=== PATIENT | male | born 1980 | race African-American/Black ===

== ENCOUNTER 2023-02-28 06:36 | Emergency (ER) | payer MEDICAID ==
[~2023-02-28] VITALS: Ht 182.9 cm; Wt 80.0 kg
[~2023-02-28 06:36] MED LIST: ALBUTEROL
[2023-02-28 06:38] VITALS: O2SAT 100
[2023-02-28] MEDS ORDERED: MAGNESIUM/ALUMINUM HYDROXIDE/SIMETHICONE 30ML UDC PO STA (06:51)
[2023-02-28] MEDS ORDERED: FAMOTIDINE 20MG TABLET PO ONE (07:00)
[2023-02-28] MEDS ORDERED: FUROSEMIDE 40MG TABLET PO ONE (07:00)
[2023-02-28 08:54] LABS: HEMATOCRIT. 41.4 % (42.0-52.0); HEMOGLOBIN. 13.7 g/dL (14.0-18.0); MEAN CORPUSCULAR HEMOGLOBIN 29.5 pg (28.0-32.0); MEAN CORPUSCULAR VOLUME 88.9 fL (80.0-94.0); MEAN PLATELET VOLUME 8.2 fl (7.4-10.4); PLATELET 273 x1000/uL (130-400); RED BLOOD CELL COUNT 4.66 mill/uL (4.7-6.1); RED CELL DISTRIBUTION WIDTH 14.6 % (11.6-14.6)
[2023-02-28 09:00] LABS: CHLORIDE 102 mEq/L (98-107)
[2023-02-28 09:13] LABS: INR 1.1; PROTHROMBIN TIME 11.9 sec (9.6-11.0)
[2023-02-28 09:14] LABS: PLATELET ESTIMATE NORMAL
[2023-02-28] MEDS ORDERED: SENNOSIDES 8.6MG TABLET PO PRN (09:45)
[2023-02-28] MEDS ORDERED: METOCLOPRAMIDE HCL 10MG TABLET PO NR (10:00)
[2023-02-28] MEDS ORDERED: FUROSEMIDE 40MG/4ML VIAL IVP ONE (10:15)
[2023-02-28] MEDS ORDERED: FURO-152 MT (11:53)
[2023-02-28] MEDS ORDERED: METO5TAB86 MT (11:53)
[2023-02-28 12:22] VITALS: BP 120/84; PULSE 99; RESP 15; TEMP 98.5
== END 2023-02-28 12:31 | disposition home or self-care (01) ==
LOC: ER 06:44
DX: K56.7 Ileus, unspecified (principal); I50.9 Heart failure, unspecified
CPT/HCPCS: 80053; 83880; 83690; 83735; 85025; 85610; 36415; 74176; 96374; 99285; J8597; J1940; Z7610 ×2

== ENCOUNTER 2023-04-20 02:16 | Emergency (ER) | payer MEDICAID ==
[~2023-04-20] VITALS: Ht 182.9 cm; Wt 82.0 kg
[~2023-04-20 02:16] MED LIST changes: +ASPI-1497 MT; +CARV6.2548 MT; +FURO-151 MT; +FURO-152 MT; +LOSA25TA3 PO; +METO5TAB86 MT; +POTA-205 MT; +SPIR25TA PO
[2023-04-20 02:19] VITALS: BP 149/79; TEMP 98.4
[2023-04-20] MEDS ORDERED: IPRATROPIUM BROMIDE (0.02%) 0.5MG/2.5ML NEB HHN STA (02:22)
[2023-04-20] MEDS ORDERED: ALBUTEROL (0.083%) 2.5MG/3ML NEB HHN STA (02:22)
[2023-04-20 03:16] VITALS: PULSE 99; RESP 20; O2SAT 96
[2023-04-20 03:32] LABS: BASOPHILS % 1.4 % (0.0-2.0); EOSINOPHILS % 12.8 % (0.0-5.0); HEMATOCRIT. 42.5 % (42.0-52.0); HEMOGLOBIN. 14.2 g/dL (14.0-18.0); LYMPHOCYTES % 24.5 % (20.0-50.0); MEAN CORPUSCULAR HEMOGLOBIN 29.6 pg (28.0-32.0); MEAN CORPUSCULAR HGB CONC 33.5 g/dL (31.0-37.0); MEAN CORPUSCULAR VOLUME 88.3 fL (80.0-94.0); MEAN PLATELET VOLUME 7.9 fl (7.4-10.4); MONOCYTES % 7.1 % (2.0-8.0); NEUTROPHILS % 54.2 % (40.0-76.0); PLATELET 251 x1000/uL (130-400); RED BLOOD CELL COUNT 4.81 mill/uL (4.7-6.1); RED CELL DISTRIBUTION WIDTH 14.7 % (11.6-14.6); WHITE BLOOD COUNT 6.2 x1000/uL (4.5-11.0)
[2023-04-20 03:39] LABS: CHLORIDE 100 mEq/L (98-107); INDEX HEMOLYSI 1 (1-3); INDEX ICTERIC 1 (1-4); INDEX LIPEMIC 1 (1-3); POTASSIUM 4.6 mEq/L (3.5-5.1); SODIUM 136 mEq/L (136-145)
[2023-04-20 03:51] LABS: ALANINE AMINOTRANSFERASE 45 IU/L (13-61); ALBUMIN 3.8 g/dL (3.4-5.0); ASPARTATE AMINOTRANSFERASE 34 IU/L (15-37); BILIRUBIN TOTAL 0.7 mg/dL (0.1-1.0); CALCIUM 8.9 mg/dL (8.5-10.1); CARBON DIOXIDE 29 mEq/L (21-32); ETHANOL BLOOD < 10 mg/dL (-10); GLUCOSE 108 mg/dL (70-105); NT PRO B-TYPE NATRIURETIC PEP 8330 pg/mL (5-125); PROTEIN TOTAL 7.2 g/dL (6.0-8.3); TROPONIN I HIGH SENSITIVITY 45 ng/L (<78); UREA NITROGEN BLOOD 33 mg/dL (7-21)
[2023-04-20] MEDS ORDERED: ALBU6.7H15 INH (04:06)
[2023-04-20] MEDS ORDERED: FUROSEMIDE 40MG TABLET PO NR (04:15)
== END 2023-04-20 06:28 | disposition home or self-care (01) ==
LOC: ER 02:22
DX: J44.1 Chronic obstructive pulmonary disease with (acute) exacerbation (principal); F17.200 Nicotine dependence, unspecified, uncomplicated; I50.9 Heart failure, unspecified; Z79.899 Other long term (current) drug therapy
CPT/HCPCS: 80053; 80320; 83880; 83690; 85025; 84484; 36415; 71045; 94640; 93005; 99285; Z7610 ×3; G0480

== ENCOUNTER 2023-12-11 07:08 | Emergency (ER) | payer MEDICAID ==
[~2023-12-11] VITALS: Ht 180.3 cm; Wt 77.1 kg
[~2023-12-11 07:08] MED LIST changes: +ALBU6.7H15 INH; +LOSA-412 PO; -LOSA25TA3 PO
[2023-12-11 07:31] VITALS: O2SAT 100
[2023-12-11 08:10] LABS: BASOPHILS % 2.3 % (0.0-2.0); EOSINOPHILS % 8.4 % (0.0-5.0); HEMATOCRIT. 37.3 % (42.0-52.0); HEMOGLOBIN. 12.4 g/dL (14.0-18.0); LYMPHOCYTES % 25.7 % (20.0-50.0); MEAN CORPUSCULAR HEMOGLOBIN 30.4 pg (28.0-32.0); MEAN CORPUSCULAR HGB CONC 33.2 g/dL (31.0-37.0); MEAN CORPUSCULAR VOLUME 91.6 fL (80.0-94.0); MEAN PLATELET VOLUME 8.4 fl (7.4-10.4); MONOCYTES % 9.3 % (2.0-8.0); NEUTROPHILS % 54.3 % (40.0-76.0); PLATELET 269 x1000/uL (130-400); RED BLOOD CELL COUNT 4.08 mill/uL (4.7-6.1); RED CELL DISTRIBUTION WIDTH 13.7 % (11.6-14.6); WHITE BLOOD COUNT 4.5 x1000/uL (4.5-11.0)
[2023-12-11 08:11] LABS: CHLORIDE 106 mEq/L (98-107); SODIUM 140 mEq/L (136-145)
[2023-12-11 08:12] LABS: CARBON DIOXIDE 27 mEq/L (21-32)
[2023-12-11 08:13] LABS: CALCIUM 8.9 mg/dL (8.7-10.4)
[2023-12-11 08:17] LABS: CREATININE 1.4 mg/dL (0.6-1.3); GLUCOSE 106 mg/dL (70-105); UREA NITROGEN BLOOD 9 mg/dL (9-23)
[2023-12-11 08:18] LABS: TROPONIN I HIGH SENSITIVITY 20 ng/L (3.0-53)
[2023-12-11 08:19] LABS: ALANINE AMINOTRANSFERASE 61 IU/L (10-49); ALBUMIN 4.3 g/dL (3.2-4.8); ASPARTATE AMINOTRANSFERASE 63 IU/L (<34)
[2023-12-11 08:20] LABS: BILIRUBIN TOTAL 0.7 mg/dL (0.1-1.0); PROTEIN TOTAL 7.2 g/dL (6.0-8.3)
[2023-12-11] MEDS ORDERED: FURO-151 MT (09:10)
[2023-12-11 09:18] VITALS: BP 128/81; PULSE 83; RESP 15; TEMP 98.6
== END 2023-12-11 09:21 | disposition home or self-care (01) ==
LOC: ER 08:11
DX: R06.02 Shortness of breath (principal); Z76.0 Encounter for issue of repeat prescription; J45.909 Unspecified asthma, uncomplicated; I50.9 Heart failure, unspecified; Z79.899 Other long term (current) drug therapy
CPT/HCPCS: 80053; 83880; 85025; 84484; 36415; 71045; 93005; 99285; Z7610 ×2

== ENCOUNTER 2024-02-10 15:41 | Inpatient (IN) | payer MEDICAID ==
[~2024-02-10] VITALS: Ht 180.3 cm; Wt 80.3 kg
[~2024-02-10 15:41] MED LIST changes: -ALBUTEROL; -ASPI-1497 MT; +BUSP10TA4 PO; +COR25 PO; -LOSA-412 PO; +LOSA25TA26 MT; -METO5TAB86 MT; +NICO-681 TP; -SPIR25TA PO
[2024-02-10] MEDS: MAGNESIUM 2 G PREMIX 50 ML IV ONE (16:29)
[2024-02-10] MEDS: METHYLPREDNISOLONE SOD SUCC 125MG/2ML (ACT-O-VIAL) IV STA (16:29)
[2024-02-10] MEDS: ASPIRIN 81MG TABLET PO ONE (16:50)
[2024-02-10 16:52] LABS: HEMATOCRIT. 42.3 % (42.0-52.0); HEMOGLOBIN. 13.9 g/dL (14.0-18.0); MEAN CORPUSCULAR HEMOGLOBIN 29.8 pg (28.0-32.0); MEAN CORPUSCULAR HGB CONC 32.8 g/dL (31.0-37.0); MEAN CORPUSCULAR VOLUME 90.9 fL (80.0-94.0); MEAN PLATELET VOLUME 7.8 fl (7.4-10.4); PLATELET 403 x1000/uL (130-400); RED BLOOD CELL COUNT 4.65 mill/uL (4.7-6.1); RED CELL DISTRIBUTION WIDTH 13.7 % (11.6-14.6); WHITE BLOOD COUNT 3.5 x1000/uL (4.5-11.0)
[2024-02-10 16:54] LABS: DIFFERENTIAL COMMENT 1
[2024-02-10 17:01] LABS: CARBON DIOXIDE 25 mEq/L (21-32); CHLORIDE 101 mEq/L (98-107); POTASSIUM 4.1 mEq/L (3.5-5.1); SODIUM 137 mEq/L (136-145)
[2024-02-10 17:02] LABS: CALCIUM 9.5 mg/dL (8.7-10.4)
[2024-02-10 17:07] LABS: GLUCOSE 122 mg/dL (70-105); TROPONIN I HIGH SENSITIVITY 14 ng/L (3.0-53); UREA NITROGEN BLOOD 12 mg/dL (9-23)
[2024-02-10 17:09] LABS: ALANINE AMINOTRANSFERASE 39 IU/L (10-49); ALBUMIN 4.6 g/dL (3.2-4.8); ASPARTATE AMINOTRANSFERASE 53 IU/L (<34); PROTEIN TOTAL 7.3 g/dL (6.0-8.3)
[2024-02-10 17:12] LABS: CREATININE 1.7 mg/dL (0.6-1.3); ETHANOL BLOOD < 10 mg/dL (<10)
[2024-02-10 17:17] LABS: BILIRUBIN TOTAL 0.5 mg/dL (0.1-1.0)
[2024-02-10 17:20] LABS: NUCLEATED RED BLOOD CELLS 1 /100 WBC; PLATELET ESTIMATE INCREASED
[2024-02-10] MEDS: ENOXAPARIN 80MG/0.8ML SYR SUBCUT ONE (20:30)
[2024-02-10 20:53] LABS: PARTIAL THROMBOPLASTIN TIME 22.9 sec (23.4-31.0); PROTHROMBIN TIME 10.9 sec (9.6-11.0)
[2024-02-10] MEDS: IOHEXOL-350 100 ML BOTTLE ONE (23:31)
[2024-02-10 23:38] VITALS: BP 132/58; PULSE 98; RESP 18; TEMP 96.4
[2024-02-11] VITALS (8 sets, daily range): BP systolic 97–131; BP diastolic 56–72; PULSE 79–98; RESP 15–20; TEMP 97.3–98; O2SAT 99–100
[2024-02-11] MEDS ORDERED: IPRATROPIUM/ALBUTEROL 0.5-3(2.5)MG/3ML NEB NEB PRN (08:45)
[2024-02-11] MEDS ORDERED: NITROGLYCERIN 0.4MG TABLET SL SL PRN (08:45)
[2024-02-11] MEDS ORDERED: CLONIDINE 0.1MG TABLET PO PRN (08:45)
[2024-02-11] MEDS ORDERED: MAGNESIUM/ALUMINUM HYDROXIDE/SIMETHICONE 30ML UDC PO PRN (08:45)
[2024-02-11] MEDS ORDERED: DOCUSATE SODIUM 100MG CAPSULE PO PRN (08:45)
[2024-02-11] MEDS ORDERED: ONDANSETRON HCL 4MG/2ML INJ IV PRN (08:45)
[2024-02-11] MEDS ORDERED: LEVOFLOXACIN 500MG PREMIX 100 ML IV SCH (08:45)
[2024-02-11] MEDS ORDERED: ACETAMINOPHEN 325MG TABLET PO PRN ×2 (08:45)
[2024-02-11] MEDS ORDERED: GUAIFENESIN 200MG/10ML SUGAR FREE UDC PO PRN (08:45)
[2024-02-11] MEDS ORDERED: ZOLPIDEM TARTRATE 5MG TABLET PO PRN (08:45)
[2024-02-11] MEDS: ASPIRIN 81MG EC TABLET PO SCH (09:11)
[2024-02-11] MEDS: FAMOTIDINE 20MG TABLET PO SCH (09:11)
[2024-02-11] MEDS: CEFTRIAXONE 1GM/50ML 50ML IV SCH (11:05)
[2024-02-11 11:41] LABS: *AMPHETAMINES SCREEN URINE PRESUMPTIVE POSITIVE (NEGATIVE); *BARBITURATES SCREEN URINE NEGATIVE (NEGATIVE); *COCAINE SCREEN URINE NEGATIVE (NEGATIVE); ECSTASY MDMA SCREEN URINE CONF.TEST INDICATED (NEGATIVE); METHADONE URINE SCREEN NEGATIVE (NEGATIVE); OPIATES URINE SCREEN NEGATIVE (NEGATIVE)
[2024-02-11 13:18] LABS: *BENZODIAZEPINES SCREEN URINE NEGATIVE (NEGATIVE); CANNABINOID URINE SCREEN PRESUMPTIVE POSITIVE (NEGATIVE); PHENCYCLIDINE URINE SCREEN NEGATIVE (NEGATIVE)
[2024-02-11] MEDS: IPRATROPIUM/ALBUTEROL 0.5-3(2.5)MG/3ML NEB HHN SCH (13:40)
[2024-02-11] MEDS: METHYLPREDNISOLONE SOD SUCC 125MG/2ML (ACT-O-VIAL) IV SCH (15:12)
[2024-02-11] MEDS: ENOXAPARIN 40MG/0.4ML SYR SUBCUT SCH (17:59)
[2024-02-11 18:25] LABS: CARBON DIOXIDE 28 mEq/L (21-32); CHLORIDE 98 mEq/L (98-107); SODIUM 133 mEq/L (136-145)
[2024-02-11 18:26] LABS: CALCIUM 9.1 mg/dL (8.7-10.4)
[2024-02-11 18:30] LABS: IRON 68 ug/dL (65-175)
[2024-02-11 18:31] LABS: BASOPHILS % 0.3 % (0.0-2.0); CREATININE 1.3 mg/dL (0.6-1.3); EOSINOPHILS % 0.2 % (0.0-5.0); GLUCOSE 152 mg/dL (70-105); HEMATOCRIT. 41.2 % (42.0-52.0); HEMOGLOBIN. 13.5 g/dL (14.0-18.0); LYMPHOCYTES % 7.8 % (20.0-50.0); MEAN CORPUSCULAR HEMOGLOBIN 29.5 pg (28.0-32.0); MEAN CORPUSCULAR HGB CONC 32.8 g/dL (31.0-37.0); MEAN CORPUSCULAR VOLUME 89.9 fL (80.0-94.0); MEAN PLATELET VOLUME 8.1 fl (7.4-10.4); MONOCYTES % 4.5 % (2.0-8.0); NEUTROPHILS % 87.2 % (40.0-76.0); PLATELET 396 x1000/uL (130-400); RED BLOOD CELL COUNT 4.58 mill/uL (4.7-6.1); RED CELL DISTRIBUTION WIDTH 13.8 % (11.6-14.6); UREA NITROGEN BLOOD 16 mg/dL (9-23); WHITE BLOOD COUNT 7.3 x1000/uL (4.5-11.0)
[2024-02-11 18:32] LABS: CREATINE KINASE MB FRACTION 3.6 ng/mL (0.5-3.6)
[2024-02-11 18:33] LABS: TOTAL IRON BINDING CAPACITY 224 ug/dl (250-425)
[2024-02-11 18:35] LABS: T4 FREE 1.12 ng/dL (0.89-1.76)
[2024-02-11 18:36] LABS: THYROID STIMULATING HORMONE 0.22 uIU/mL (0.55-4.78)
[2024-02-11 18:38] LABS: FOLIC ACID (FOLATE) SERUM 9.91 ng/mL (>5.38)
[2024-02-11 18:39] LABS: VITAMIN B12 SERUM 752 pg/mL (211-911)
[2024-02-11] MEDS: METHYLPREDNISOLONE SOD SUCC 40MG/ML (ACT-O-VIAL) IV SCH (22:16)
[2024-02-12] VITALS: BP 95/65; PULSE 92; RESP 18; TEMP 97.8
[2024-02-12 04:00] VITALS: BP 102/68; PULSE 92; RESP 17; TEMP 97.6
[2024-02-12 06:18] LABS: CHLORIDE 102 mEq/L (98-107); SODIUM 138 mEq/L (136-145)
[2024-02-12 06:19] LABS: CARBON DIOXIDE 31 mEq/L (21-32)
[2024-02-12 06:24] LABS: CREATININE 1.2 mg/dL (0.6-1.3); GLUCOSE 105 mg/dL (70-105); UREA NITROGEN BLOOD 16 mg/dL (9-23)
[2024-02-12 06:26] LABS: ALANINE AMINOTRANSFERASE 25 IU/L (10-49); ALBUMIN 4.3 g/dL (3.2-4.8); ASPARTATE AMINOTRANSFERASE 18 IU/L (<34); PHOSPHORUS 3.6 mg/dL (2.5-4.9)
[2024-02-12 06:27] LABS: BILIRUBIN TOTAL 0.2 mg/dL (0.1-1.0); PROTEIN TOTAL 6.5 g/dL (6.0-8.3)
[2024-02-12 06:28] LABS: BASOPHILS % 0.5 % (0.0-2.0); EOSINOPHILS % 0.1 % (0.0-5.0); HEMATOCRIT. 38.4 % (42.0-52.0); HEMOGLOBIN. 12.6 g/dL (14.0-18.0); LYMPHOCYTES % 13.4 % (20.0-50.0); MEAN CORPUSCULAR HEMOGLOBIN 29.4 pg (28.0-32.0); MEAN CORPUSCULAR HGB CONC 32.9 g/dL (31.0-37.0); MEAN CORPUSCULAR VOLUME 89.5 fL (80.0-94.0); MEAN PLATELET VOLUME 8.6 fl (7.4-10.4); PLATELET 346 x1000/uL (130-400); RED BLOOD CELL COUNT 4.29 mill/uL (4.7-6.1); RED CELL DISTRIBUTION WIDTH 13.8 % (11.6-14.6); WHITE BLOOD COUNT 6.2 x1000/uL (4.5-11.0)
[2024-02-12 08:00] VITALS: BP 120/72; PULSE 90; RESP 16; TEMP 98.3
[2024-02-12 09:14] VITALS: PULSE 83; RESP 14
[2024-02-12] MEDS ORDERED: P20 MT (10:01)
[2024-02-12] MEDS ORDERED: ALBU6.7H15 INH (10:01)
[2024-02-12] MEDS ORDERED: DOXY150T5 MT (10:01)
[2024-02-12 10:19] LABS: CREATINE KINASE MB FRACTION 1.9 ng/mL (0.5-3.6)
== END 2024-02-12 09:45 | disposition left against medical advice (07) | DRG 133 ==
LOC: ER 15:41 → EDBD 15:41 → 8WST 20:37 → EDBEDREQ 20:43 → EDBEDREQTM 20:43
PROVIDERS: ADMIT Internal Medicine; ATTEND Internal Medicine
DX: J96.01 Acute respiratory failure with hypoxia (principal); I42.9 Cardiomyopathy, unspecified; N17.9 Acute kidney failure, unspecified; J44.0 Chronic obstructive pulmonary disease with (acute) lower respiratory infection; J44.1 Chronic obstructive pulmonary disease with (acute) exacerbation; J45.901 Unspecified asthma with (acute) exacerbation; I50.22 Chronic systolic (congestive) heart failure; I11.0 Hypertensive heart disease with heart failure; F17.210 Nicotine dependence, cigarettes, uncomplicated; I34.0 Nonrheumatic mitral (valve) insufficiency; Z53.29 Procedure and treatment not carried out because of patient's decision for other reasons; F15.10 Other stimulant abuse, uncomplicated; F12.10 Cannabis abuse, uncomplicated; Z79.899 Other long term (current) drug therapy
CPT/HCPCS: 36415; 71045; 71275; 76770; 80048; 80053; 80305; 80320; 82550; 82553; 82607; 82746; 82962; 83036; 83540; 83550; 83735; 83880; 84100; 84439; 84443; 84484; 85025; 85379; 93005; 93970; 94640; 99285; J0696; J1650; J2919; J2920; J3475; Q9967; G0480